=== PATIENT | male | born 2000 | race Caucasian/White ===

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

== ENCOUNTER 2023-04-09 16:46 | Emergency (ER) | payer OTHER, SELFPAY ==
[2023-04-09 16:47] VITALS: BP 143/86; PULSE 93; RESP 18; TEMP 36.4; O2SAT 99; BMI 30.1
--- NOTE | 2023-04-09 17:55 | CT_ITS ---
EXAM: CT abdomen and pelvis with contrast. HISTORY: abdominal pain TECHNIQUE: CT Abdomen And Pelvis W/ Contrast Injection. A radiation dose optimization technique was used for this scan. COMPARISON: None. LIMITATIONS: Motion artifact. LOWER CHEST: Normal. LIVER: Normal. GALLBLADDER: Normal. BILE DUCTS: Normal. PANCREAS: Normal. SPLEEN: Normal. ADRENAL GLANDS: Normal. KIDNEYS/URETERS/BLADDER: Normal. AORTA: Normal caliber. BOWEL/MESENTERY: No evidence of colitis. No small bowel obstruction. Subcentimeter mesenteric lymph nodes in the right lower quadrant are increased in number. APPENDIX: Normal. PERITONEUM: Normal. REPRODUCTIVE ORGANS: Normal. BONES/SOFT TISSUES: No acute fracture. OTHER: None. CONCLUSION: Motion artifact. No evidence of appendicitis. Subcentimeter mesenteric lymph nodes are increased in number in the right lower quadrant. This is a nonspecific finding, but can be seen with mesenteric adenitis. Electronically Signed: Austen Cunningham MD at 18:49 EDT , CT/Abdomen/Pelvis W IV Cont ONLY IMPRESSION: undefined
--- NOTE | 2023-04-09 18:00 | EX.ED.DYSGE1 ---
HPI History of Present Illness Chief Complaint: Abd Pain Informant: patient and parent Narrative Narrative: 22 male presenting to the emergency department with right lower quadrant intermittent abdominal pain. States it comes about 3 times per hour and last 2 minutes each session. He has not had an appetite for about 24 hours. No fevers or diarrhea. Last bowel movement was this afternoon was normal. He denies any trauma. He is worried about his appendix. Familial history of ureterolithiasis. He denies any rashes. No testicular pain or swelling. There is no radiation to the flank. PFSH PFSH Allergy/AdvReac Type Severity Reaction Status Date / Time No Known Allergies Allergy Verified 04/09/23 16:48 Surgical History (Updated 04/09/23 @ 18:[address] Wero Cornell DO) H/O hand surgery Social History Smoking Status: Never smoker ROS ROS ED Constitutional Constitutional ED: Denies chills, fever(s) or weight loss Eyes Eyes: Denies change in vision or diplopia ENT ENT ED: Denies ear pain, rhinorrhea or sore throat Cardiovascular Cardiovascular: Denies chest pain, orthopnea, palpitations or racing heartbeat Respiratory/Chest Respiratory/Chest: Denies cough, dyspnea or orthopnea Gastrointestinal Gastrointestinal: Reports abdominal pain and other Details: Anorexia ; Denies diarrhea, nausea or vomiting Genitourinary Genitourinary ED: Denies dysuria, hematuria or urinary frequency Musculoskeletal Musculoskeletal: Denies arthralgias or myalgias Integumentary Denies abscess or rash Neurologic Neurologic: Denies headache(s) or weakness Psychiatric Psychiatric: Denies anxiety, depression, suicidal ideation or suicidal thoughts Endocrine Endocrinology: Denies polydipsia, polyphagia or polyuria Allergic/Immunologic Allergic/Immunologic ED: Denies mouth swelling, tongue swelling or urticaria EXAM Physical Exam Const Vital Signs: 04/09/23 16:47 Temperature 97.6 F L Temperature Source Temporal Pulse Rate 93 Respiratory Rate 18 Blood Pressure 143/86 H Blood Pressure Mean 105 Pulse Ox 99 Oxygen Delivery Method Room Air Positive well nourished and well developed General Appearance ED: well developed HEENT Reports normocephalic, head/scalp atraumatic and moist mucous membranes Eyes PERRL and EOMs intact bilaterally Neck no lymphadenopathy, supple and no JVD Resp normal respiratory effort and clear to auscultation bilaterally Cardio regular rate, regular rhythm and no murmurs GI Inspection: Negative for abdominal distention Auscultation: normoactive bowel sounds Palpation: soft and tender RLQ; Negative for guarding or rebound tenderness present Back/Spine no CVA tenderness and normal ROM Extremity normal to inspection General Extremety ED: Negative for edema General Extremity: Negative for edema Neuro oriented x3 and CN's II-XII intact bilaterally Sensorium / Orientation: alert Motor Exam: strength 5/5 throughout Psych mental status grossly normal Mood & Affect: Negative for depressed or tearful Skin no rashes or lesions noted and no wounds MDM MDM MDM Narrative Medical decision making narrative: White count is normal at 7.9. Urinalysis is normal. Creatinine 0.84. CT abdomen pelvis was significant for some subcentimeter lymph nodes in the mesentery in the right lower quadrant consistent with mesenteric adenitis. Patient will be discharged home with supportive care return if worsening or concerns Lab Data Attestation: I reviewed the patient's lab results. Labs: Laboratory Results - last 24 hr 04/09/23 04/09/23 18:00 19:00 WBC 7.9 RBC 5.01 Hgb 15.3 Hct 43.8 MCV 87.4 MCH 30.5 MCHC 34.9 RDW Std Deviation 40.4 RDW Coeff of K[place] 12.7 Plt Count 311 MPV 9.3 Immature Gran % (Auto) 0.100 Neut % (Auto) 65.9 Lymph % (Auto) 23.3 [place] % (Auto) 6.0 Eos % (Auto) 4.2 Baso % (Auto) 0.5 Absolute Neuts (auto) 5.2 Absolute Lymphs (auto) 1.83 Nucleated RBC % 0 Sodium 139 Potassium 4.0 Chloride 108 H Carbon Dioxide 25.0 Anion Gap 6 BUN 11 Creatinine 0.84 Estim Creat Clear Calc 137.94 Est GFR (MDRD) Af Amer 145 Est GFR (MDRD) Non-Af 120 BUN/Creatinine Ratio 13.0 Glucose 104 Calcium 9.1 Urine Color Yellow Urine Clarity Clear Urine pH 8.0 Ur Specific [place] 1.010 Urine Protein Negative Urine Glucose (UA) Normal Urine Ketones Negative Urine Occult Blood Negative Urine Nitrite Negative Urine Bilirubin Negative Urine Urobilinogen Normal Ur Leukocyte Esterase Negative Radiography Diagnostic Testing: Clinical Impression(s) from Imaging Studies Abdomen/Pelvis CT 04/09/23 17:55 IMPRESSION: undefined Discharge Plan Triage Chief Complaint: Abd Pain ED Provider: Wero Cornell Dx/Rx/DC Orders Clinical Impression: Acute mesenteric adenitis, Abdominal pain, acute Instructions: ED Adenitis, Mesenteric Primary Care Provider: Emanuel Thorpe Referrals: Emanuel Thorpe DO [Primary Care Provider] - Disposition Disposition: Home, Self Care
[2023-04-09] MEDS: 0.9% Normal Saline (1000mL) 1,000 ML 1000 ML IV (18:06)
[2023-04-09 18:15] LABS: Absolute Lymphocyte Count 1.83 X10^3/uL (0.83-4.51); Absolute Neutrophil Count 5.2 X10^3/uL (2.0-7.7); Basophil# 0.04 X10^3/uL; Basophil% 0.5 % (0-1); Eosinophil# 0.33 X10^3/uL; Eosinophils% 4.2 % (0-5); Hematocrit 43.8 % (40-54); Hemoglobin 15.3 g/dL (13.0-16.5); Lymphocyte # 1.83 X10^3/ul (0.83-4.51); Lymphocyte % 23.3 % (19-41); Mean Corp Hgb Conc 34.9 g/dL (32-36); Mean Corpuscular Hgb 30.5 pg (27.0-32.0); Mean Corpuscular Volume 87.4 fL (80-94); Mean Platelet Vol. 9.3 fl (6.2-12.0); Monocyte# 0.47 X10^3/uL; NRBC Flagged by Analyzer 0 % (0-5); Neutrophil # 5.18 X10^3/uL (2.7-7.7); Neutrophil % 65.9 % (47-70); Platelet Count 311 K/mm3 (150-450); RBC Distribution Width CV 12.7 % (11.6-14.6); RBC Distribution Width SD 40.4 fl (35.1-43.9); Red Blood Count 5.01 M/mm3 (4.6-6.2); White Blood Count 7.9 K/mm3 (4.4-11.0)
[2023-04-09 18:40] LABS: Anion Gap 6 (5-15); BUN 11 mg/dL (7-18); Calcium,Total 9.1 mg/dL (8.5-10.1); Chloride 108 mmol/L (98-107); Creatinine, Serum 0.84 mg/dL (0.70-1.30); EST Glomerular Filtration Rate 120 mL/min (>60); Est Glom Filt Rate - Afr Amer 145 mL/min (>60); Estimated Creatinine Clearance 137.94 ml/min; Glucose 104 mg/dL (74-106); Sodium Level 139 mmol/L (136-145)
[2023-04-09 19:06] LABS: Bacteria 0 SEEN /hpf (None Seen); Mucous, Urine 0 SEEN /hpf (<or=2+); Red Blood Cells-Urine 0 SEEN /hpf (0-5); White Blood Cells 0 SEEN /hpf (0-5)
[2023-04-09 19:07] LABS: Color, Urine Yellow (Yellow); Glucose, Dipstick Normal (Normal); Ketone-Dipstick Negative (Negative); Leukocyte Esterase-Dipstick Negative /ul (Negative); Nitrite-Dipstick Negative (Negative); Occult Blood-Urine Negative /ul (Negative); Protein-Dipstick Negative (Negative); Urine Bilirubin Dipstick Negative (Negative); Urine Clarity Clear (Clear); Urine Urobilinogen Normal (Normal)
[2023-04-09 19:28] LABS: Squamous Epithelial Cells - UA 0-5 SEEN /hpf (0-5)
== END 2023-04-09 19:39 | disposition home or self-care (01) ==
PROVIDERS: Emergency Provider Emergency Medicine; PCP Student in an Organized Health Care Education/Training Program; Visit Provider Emergency Medicine
DX: I88.0 Nonspecific mesenteric lymphadenitis (principal); R10.31 Right lower quadrant pain
CPT/HCPCS: 74177; 80048; 81001; 85025; 96360; 99285; J7030; Q9967